=== PATIENT | female | born 1975 | race Caucasian/White ===

== ENCOUNTER 2020-05-23 08:22 | Day surgery (SDC) | payer OTHER ==
[~2020-05-23] VITALS: Ht 152.4 cm; Wt 61.5 kg
[2020-05-23] VITALS (8 sets, daily range): BP systolic 118–151; BP diastolic 60–88
[2020-05-23] MEDS ORDERED: KETOROLAC 30 MG/ML 1ML VIAL IV ONE (09:00)
[2020-05-23] MEDS ORDERED: NAPR-885 PO (09:07)
[2020-05-23] MEDS ORDERED: AMBI5TAB PO (09:07)
[2020-05-23] MEDS ORDERED: TIZA4CAP6 PO (09:07)
[2020-05-23] MEDS ORDERED: METH750T2 PO (09:07)
[2020-05-23] MEDS ORDERED: CLAR10CA3 PO (09:07)
[2020-05-23] MEDS ORDERED: OXYB5TAB10 PO (09:07)
[2020-05-23] MEDS ORDERED: TRAM50TA2 PO (09:07)
[2020-05-23] MEDS ORDERED: GABA-843 PO (09:07)
[2020-05-23 09:11] LABS: BASO % 0.2 % (0.0-1.0); EOS # 0.1 10^3/uL (0.0-0.5); EOS % 0.7 % (0.0-3.0); HEMOGLOBIN 12.5 g/dl (12.0-15.5); LYMPH # 2.1 10^3/uL (1.5-5.0); MEAN CORPUSCULAR HEMOGLOBIN 33.4 pg (27.0-33.0); MEAN CORPUSCULAR HGB CONC 32.9 g/dl (32.0-36.5); MEAN CORPUSCULAR VOLUME 101.6 fl (80.0-96.0); MONO # 0.9 10^3/uL (0.0-0.8); MONO % 7.5 % (0.0-5.0); NEUTROPHILS # 9.2 10^3/uL (1.5-8.5); NEUTROPHILS % 74.3 % (36.0-66.0); PLATELET COUNT, AUTOMATED 260 10^3/uL (150-450); RED BLOOD COUNT 3.74 10^6/uL (4.00-5.40); WHITE BLOOD COUNT 12.3 10^3/uL (4.0-10.0)
[2020-05-23] MEDS ORDERED: ISOVUE-370 76% 100ML VIAL As Ordered ONE (09:49)
--- NOTE | 2020-05-23 10:17 | REP ---
Clinical: Acute right lower quadrant pain. Technique: Axial contrast enhanced images from the lung bases to the pubic symphysis using 100 ml Isovue 370 intravenous contrast material with coronal and sagittal re-formations. Findings: The appendix is fluid-filled and dilated to approximately 13.5 mm with periappendiceal stranding located inferiorly from the cecum into the right lower quadrant (images 104 - 125). Findings are compatible with acute appendicitis. Small amount of free fluid extends into the pelvis. No bowel obstruction or perforation. No drainable collection/abscess. Liver, spleen, pancreas, gallbladder, bilateral adrenal glands and kidneys are normal. Remainder of the enteric system is unremarkable. Pelvis demonstrates normal bladder and age-appropriate uterus/adnexa. No adenopathy. No free air. Atherosclerotic changes to the aorta without aneurysm or dissection. Musculoskeletal structures intact. Impression: Acute appendicitis as described above. No obstruction, perforation, or drainable collection/abscess. Electronically Signed by Escobar Palomo MD 05/23/2020 10:08 A
--- NOTE | 2020-05-23 10:27 | REP ---
Clinical: Lower chest pain Comparison: None . Findings: The mediastinum and cardiac silhouette are stable and within normal limits for portable technique. The lung williamson are clear without acute consolidation, effusion, or pneumothorax. Very minimal linear fibroatelectatic changes at the left base are nonspecific. Skeletal structures are intact. Impression: No focal consolidation or effusion. Electronically Signed by Escobar Palomo MD 05/23/2020 10:18 A
[2020-05-23] MEDS ORDERED: NS 1,000 ML IV SCH ×2 (10:30→12:10)
[2020-05-23] MEDS ORDERED: PIPERACILLIN/TAZOBACTAM SOD 3.375 GM in D5W MINI-BAG PLUS 50 ML IV ONE (10:30)
[2020-05-23] MEDS ORDERED: ACET-897 PO (10:48)
[2020-05-23] MEDS ORDERED: TIZA2CAP PO (10:48)
[2020-05-23] MEDS ORDERED: METH1TAB40 PO (10:48)
[2020-05-23] MEDS ORDERED: OXYB10TA23 PO (10:48)
[2020-05-23] MEDS ORDERED: NICO-242 PO (10:48)
[2020-05-23] MEDS ORDERED: ROCURONIUM BROMIDE 50 MG/5 ML VIAL As Ordered ONE (11:43)
[2020-05-23] MEDS ORDERED: ONDANSETRON 4MG/2ML VIAL As Ordered ONE (11:43)
[2020-05-23] MEDS ORDERED: dexameTHASONE 4 MG/ML 1ML VIAL (J1100 PER 1MG) As Ordered ONE (11:43)
[2020-05-23] MEDS ORDERED: LIDOCAINE 2% 100MG/5ML SDV (FOR ANES.) As Ordered ONE (11:43)
[2020-05-23] MEDS ORDERED: fentaNYL 250 MCG/5 ML INJECTION (J3010) As Ordered ONE (11:43)
[2020-05-23] MEDS ORDERED: propofoL 200 MG/20 ML VIAL As Ordered ONE (11:43)
[2020-05-23] MEDS ORDERED: MIDAZOLAM INJ 2MG/2ML VIAL (J2250 PER 1MG) As Ordered ONE (11:44)
[2020-05-23] MEDS ORDERED: KETOROLAC 30 MG/ML 1ML VIAL IV PRN (12:15)
[2020-05-23] MEDS ORDERED: ACETAMINOPHEN TAB 650MG DOSE (2X325MG) PO PRN (12:15)
[2020-05-23] MEDS ORDERED: MORPHINE 2 MG/ML 1ML VIAL (J2270) IV PRN (12:15)
[2020-05-23] MEDS ORDERED: ONDANSETRON 4MG/2ML VIAL IV PRN ×2 (12:15→15:00)
[2020-05-23] MEDS ORDERED: zolPIDEM TARTRATE 5 MG TAB PO PRN (12:15)
[2020-05-23] MEDS ORDERED: BUPIVACAINE/EPIN 0.25% 30 ML VIAL As Ordered ONE (13:20)
[2020-05-23] MEDS ORDERED: KETOROLAC 60MG 2ML VIAL As Ordered ONE (13:35)
[2020-05-23] MEDS ORDERED: PHENYLephrine HCL 500 MCG/5 ML (100MCG/ML) SYRINGE (J2370) As Ordered ONE (13:55)
[2020-05-23] MEDS ORDERED: ACETAMINOPHEN 1000MG 100ML IV BTL (OFIRMEV) (J0131 PER 10MG) As Ordered ONE (14:05)
[2020-05-23] MEDS ORDERED: HYDROmorphone HCL 2 MG/ML 1ML VIAL (J1170) As Ordered ONE (14:09)
[2020-05-23] MEDS ORDERED: SUGAMMADEX SODIUM 500 MG/5 ML VIAL (BRIDION) As Ordered ONE (14:13)
[2020-05-23] MEDS ORDERED: HYDR-3715 PO (14:41)
[2020-05-23] MEDS ORDERED: AUGM875T28 PO (14:41)
[2020-05-23] MEDS: fentaNYL 100 MCG/2 ML INJECTION (J3010) IV PRN ×8 (14:57→15:41)
[2020-05-23] MEDS ORDERED: LR 1,000 ML IV SCH (15:00)
[2020-05-23] MEDS ORDERED: METOCLOPRAMIDE INJ 10MG/2ML VIAL (J2765 PER 1) IV PRN (15:00)
[2020-05-23] MEDS ORDERED: MEPERIDINE INJ 25 MG/ML VIAL (J2175) IV PRN (15:00)
[2020-05-23] MEDS: PERCOCET 5MG/325MG TAB PO PRN ×2 (15:00→15:41)
[2020-05-23] MEDS: PIPERACILLIN/TAZOBACTAM SOD 3.375 GM in D5W MINI-BAG PLUS 50 ML IV SCH ×2 (18:23→23:56)
[2020-05-23] MEDS: NORCO, ANEXSIA 5/325MG TABLET (HYDROcodone/ACETAMINOPHEN) PO PRN (18:57)
--- NOTE | 2020-05-23 19:21 | HPE ---
DATE OF ADMISSION: 05/23/2020 CHIEF COMPLAINT: Right lower quadrant pain. HISTORY OF PRESENT ILLNESS: The patient is a 44-year-old female who woke up suddenly around 3:00 a.m. this morning with right lower quadrant pain; it has gotten progressively worse. She went to her provider who sent her to the emergency room. In the emergency room (ER), she had elevated white count as well as CT findings suspicious for acute appendicitis. She was brought to the operating room for urgent appendectomy. She says that her pain is still present. No fevers or chills. No nausea or vomiting. No problems with urination or bowel movements. No recent trauma or travel and no changes in medications. PAST MEDICAL HISTORY: Shoulder pain, history of tobacco usage in the past; she recently quit. PAST SURGICAL HISTORY: section (C section), ankle surgery, nose surgery. ALLERGIES: None. HOME MEDICATIONS: Please see med rec. SOCIAL HISTORY: Denies drug, alcohol, tobacco abuse. FAMILY HISTORY: Noncontributory. REVIEW OF SYSTEMS: Pertinent positives and negatives as stated in the history of the present illness. PHYSICAL EXAMINATION: General: Alert and oriented times three. No acute stress. Vital signs: Temperature 97.6, pulse 63, respirations 16, blood pressure 103/63, pulse oximetry 99% room air. HEENT: Pupils equally round and react to light and accommodation. Heart: S1 and S2, regular rate and rhythm. Lungs: Clear to auscultation bilaterally. Abdomen: Soft, tender to palpation right lower quadrant. Localized guarding. No rebound or rigidity. Extremities: No clubbing, cyanosis or edema. LABORATORY DATA: White count 12.3, hemoglobin 12.5, platelets 260, sodium 138, potassium 3.7. IMAGING STUDIES: CT abdomen and pelvis showed acute appendicitis. No obstruction, perforation or drainable collection or abscess. The appendix is fluid filled and dilated to approximately 13.5 mm with periappendiceal fat stranding. ASSESSMENT/PLAN: The patient is a 44-year-old female with acute appendicitis. Recommendation was to proceed with laparoscopic appendectomy. Risks and benefits of the procedure not limited to but including bleeding, infection, hernia formation, damage to surrounding structures, and need for further surgery discussed in detail with the patient. Informed consent was obtained and procedure was planned urgently. Postoperatively, she will be either discharged home depending on when the procedure is completed or kept overnight with plan for discharge in the morning.
[2020-05-23] MEDS ORDERED: GABAPENTIN 300 MG CAP PO SCH (21:00)
[2020-05-23] MEDS: methocarbamoL 500 MG TAB PO SCH (21:15)
[2020-05-23] MEDS: SENOKOT S TAB PO SCH (21:15)
[2020-05-23] MEDS ORDERED: NICOTINE 4 MG PO PRN (23:15)
[2020-05-24] VITALS: BP 109/59
[2020-05-24] MEDS: NORCO, ANEXSIA 5/325MG TABLET (HYDROcodone/ACETAMINOPHEN) PO PRN ×2 (04:37→10:02)
[2020-05-24 05:00] VITALS: BP 105/59
[2020-05-24] MEDS: PIPERACILLIN/TAZOBACTAM SOD 3.375 GM in D5W MINI-BAG PLUS 50 ML IV SCH (05:56)
[2020-05-24 07:03] LABS: HEMATOCRIT 34.2 % (36.0-47.0); HEMOGLOBIN 11.2 g/dl (12.0-15.5); MEAN CORPUSCULAR HEMOGLOBIN 33.5 pg (27.0-33.0); MEAN CORPUSCULAR HGB CONC 32.7 g/dl (32.0-36.5); MEAN CORPUSCULAR VOLUME 102.4 fl (80.0-96.0); PLATELET COUNT, AUTOMATED 247 10^3/uL (150-450); RED BLOOD COUNT 3.34 10^6/uL (4.00-5.40); WHITE BLOOD COUNT 9.2 10^3/uL (4.0-10.0)
[2020-05-24 07:22] LABS: BLOOD UREA NITROGEN 9 MG/DL (7-18); CALCIUM LEVEL 8.8 MG/DL (8.5-10.1); CARBON DIOXIDE LEVEL 28 MEQ/L (21-32); CHLORIDE LEVEL 108 MEQ/L (98-107); CREATININE FOR GFR 0.63 MG/DL (0.55-1.30); GLOMERULAR FILTRATION RATE > 60.0 (>58); GLUCOSE, FASTING 147 MG/DL (70-100); POTASSIUM SERUM 4.2 MEQ/L (3.5-5.1); SODIUM LEVEL 139 MEQ/L (136-145)
[2020-05-24 08:00] VITALS: BP 118/62
[2020-05-24] MEDS ORDERED: LORATADINE 10 MG TAB PO SCH (09:00)
[2020-05-24] MEDS ORDERED: oxyBUTYnin *DITROPAN XL* 5 MG TABCR PO SCH (09:00)
[2020-05-24] MEDS: methocarbamoL 500 MG TAB PO SCH (09:27)
[2020-05-24] MEDS: SENOKOT S TAB PO SCH (09:27)
--- NOTE | 2020-05-25 14:31 | RO ---
DATE OF PROCEDURE: 05/23/2020 PREOPERATIVE DIAGNOSIS: Acute appendicitis. POSTOPERATIVE DIAGNOSIS: Acute appendicitis. PROCEDURE: Laparoscopic appendectomy. SURGEON: Dr. Brad So COUNTER TOP ASSEMBLER: None. ANESTHESIA: General. ESTIMATED BLOOD LOSS: 5. COMPLICATIONS: None. INDICATIONS FOR PROCEDURE: The patient is a 44-year-old female who presents with right lower quadrant abdominal pain and found to have acute appendicitis on CT. Recommendation was to proceed with laparoscopic appendectomy. Risks and benefits of the procedure not limited to, but including bleeding, infection, hernia formation, damage to surrounding structures, need for further surgery were discussed in detail with the patient. Informed consent was obtained and the procedure planned. DESCRIPTION OF PROCEDURE: The patient brought back to operating room two after sufficient sedation and the abdomen was sterilely prepped and draped. Next a time out was done to confirm proper patient and proper procedure. Following that, a 5 mm incision was made in the left lower quadrant, Veress needle inserted and the abdomen was insufflated to 15 mmHg. The Veress needle was then removed. A 5 mm OptiVu port was used to gain access to the abdomen. Once the abdomen was entered, an 8 mm port was placed supraumbilically in the midline and another 5 mm port suprapubically in the midline. Next, the right lower quadrant was examined. The omentum was adhered to the tip the appendix. This was gently taken down with the Enseal. The appendix was then elevated up anteriorly. The mesoappendix was taken down until the base of the appendix was reached using the Enseal. Once the base was reached, it was ligated with two PDS Endoloops. The appendix was then amputated with the Enseal and placed inside of 5 mm EndoCatch bag. The appendix was then brought out through the supraumbilical port site. Once the appendix was out, the fascia was closed with [id number] #0 Vicryl suture. The abdomen was then desufflated. Skin incision closed with #4-0 Vicryl subcuticular sutures. The abdomen was cleaned and dried. Steri-Strips, 4x4 and tape were applied, thus ending the procedure.
--- NOTE | 2020-05-27 08:10 | DSES ---
DATE OF ADMISSION: 05/23/2020 DATE OF DISCHARGE: 05/24/2020 ADMISSION DIAGNOSIS: Appendicitis. DISCHARGE DIAGNOSIS: Appendicitis. HOSPITAL COURSE: The patient is a 44-year-old female. She came into the hospital on 05/23/2020 with acute appendicitis. She was brought to the operating room for urgent laparoscopic appendectomy. Surgery was uneventful. Postoperatively, she was new to the area and did not have anyone to stay with and did not have access to medications from a pharmacy, so she decided to stay overnight. This morning, she is doing well. She feels much better. Pain is controlled. She is urinating well. Ambulating without any difficulty. Tolerating diet. PLAN: Is to discharge home this morning. She has pain pill and antibiotic sent to her pharmacy yesterday. She can shower later this afternoon. No baths for 5 days. No lifting more 20 pounds for 2 weeks. She will followup with me in the office in 2 weeks to make sure everything is okay, and then she can be cleared to go back to work without any restrictions. All of her questions are answered; and if she needs anything else, she will call my office. Dictation
== END 2020-05-24 10:05 | disposition home or self-care (01) ==
LOC: M ED 08:22 → M SDC 10:40 → ENRESERV 12:30 → M PED 17:05 → M SDC 05-24 10:05
PROVIDERS: ATTEND Surgery
DX: K35.890 Other acute appendicitis without perforation or gangrene (principal); Z87.891 Personal history of nicotine dependence
CPT/HCPCS: 36415; 44970; 71045; 74177; 80047; 80048; 81001; 83605; 84702; 85025; 85027; 88304; 96361; 96365; 96366; 96375; 99284; J0131; J1100; J1170; J1885; J2250; J2370; J2405; J2543; J3010; Q9967; U0002

== ENCOUNTER → 2020-05-29 | Outpatient (CLI) | payer OTHER ==
[~2020-05-29] MED LIST: ACET-897 PO; AMBI5TAB PO; AUGM875T28 PO; CLAR10CA3 PO; GABA-843 PO; HYDR-3715 PO; METH1TAB40 PO; METH750T2 PO; NAPR-885 PO; NICO-242 PO; OXYB10TA23 PO; OXYB5TAB10 PO; TIZA2CAP PO; TIZA4CAP6 PO; TRAM50TA2 PO
--- NOTE | 2020-05-30 08:28 | REPPI ---
REASON: Dyspnea. COMPARISON: Portable exam obtained 05/23/2020. FINDINGS: The superior mediastinal structures are midline. The cardiac silhouette is unremarkable in size, shape, and position. The diaphragmatic surfaces of the lungs are regular, and the costophrenic angles are clear. The pulmonary williamson are clear. The imaged osseous structures are intact. IMPRESSION: There is no acute cardiopulmonary disease. No significant change other than technique. Electronically Signed by Eusebio Dennis DO 05/30/2020 05:17 P
== END ==
LOC: M PLALAB 15:10
PROVIDERS: ATTEND Internal Medicine Pulmonary Disease
DX: R06.02 Shortness of breath (principal)

== ENCOUNTER → 2020-07-10 | Outpatient (CLI) | payer OTHER ==
--- NOTE | 2020-08-04 13:16 | METHCHAL ---
Ordering Provider: Dr. Bautista. Quality: Study is excellent technical quality. Procedure: Under protocol, methacholine is administered. With a dose of 0.25 mg or 0.125 CDUs a 22% decline in the FEV1 was noted. PC not calculated. Flow rates did return to baseline post bronchodilator administration. IMPRESSION: Positive methacholine challenge study. MTDD
--- NOTE | 2020-08-07 07:45 | PFTRPT ---
Visit Date: 07/10/2020 Second ID: [id number] Referring Doctor: Cyril Bautista MD Height: 60.00 Inches Weight: 133.00 Lbs BSA: 1.57 Diagnosis: R06.02 QUALITY: Study of excellent technical quality. PROCEDURE: Under protocol, methacholine was administered. At a dose of 0.025 mg or 0.125 CDUs, a 22% decline in the FEV1 was noted. Flow rates did return to baseline post-bronchodilator administration. IMPRESSION: Positive methacholine challenge study. MTDD
== END ==
LOC: M CARPUL 14:00
PROVIDERS: ATTEND Internal Medicine Pulmonary Disease
DX: R06.02 Shortness of breath (principal)

== ENCOUNTER → 2020-12-13 | Outpatient (CLI) | payer OTHER ==
[~2020-12-13] MED LIST changes: +GABA-282 PO; -GABA-843 PO; +METH-1164 PO; +METH-1165 PO; -METH1TAB40 PO; -METH750T2 PO
--- NOTE | 2020-12-13 16:24 | REP ---
INDICATION: KNOTS LT BREAST 2-3 O'CLOCK. History of breast cancer in sister at age 35. COMPARISON: 01/05/2020. TECHNIQUE: MLO and CC views of both breasts performed. Spot-compression views upper-outer quadrant left breast performed at the site of the reported palpable lump, which is marked on the skin. Focused left breast ultrasound performed at the site of the palpable lump. FINDINGS: Mild scattered fibroglandular tissue is present bilaterally. I see no evidence of mass or suspicious clusters of microcalcifications. Tiny calcifications are seen in the right breast which appear to represent benign milk of calcium in microcysts. These are present on the prior study. Focused left breast ultrasound performed in the upper-outer quadrant at the site of the palpable lump. 3 mm cyst is noted. No other cystic or solid nodule is seen. The Volpara volumetric breast density pattern is A. IMPRESSION: BIRADS/ACR category 2, benign. No mass or suspicious clusters of microcalcifications on the mammogram. By ultrasound there is a 3 mm cyst in the upper outer quadrant of left breast in the region of the palpable lump. No other cystic or solid nodule is seen. This patient's Tyrer-Cuzick lifetime breast cancer risk assessment score is 16.4%. This mammogram was interpreted with the aid of an FDA-approved computer-aided detection system. The patient states she had a clinical breast exam in over 1 year ago. The patient letter being requested is M2. RECOMMENDATION: Repeat screening mammography recommended 1 year (for women over 40). <Electronically signed by Brad Johnson > 12/13/20 [id number]
== END ==
LOC: M WHC 07:58
PROVIDERS: ATTEND Family Medicine
DX: N60.02 Solitary cyst of left breast (principal); Z80.3 Family history of malignant neoplasm of breast; R92.1 Mammographic calcification found on diagnostic imaging of breast
CPT/HCPCS: 76642; 77066; G0279

== ENCOUNTER → 2021-05-08 | Outpatient (CLI) | payer OTHER ==
--- NOTE | 2021-05-09 06:35 | REP ---
INDICATION: SWELLING LUMP COMPARISON: None TECHNIQUE: Realtime grayscale and color B-mode ultrasound examination using linear high-frequency transducer. FINDINGS: Directed ultrasound examination to the right axilla overlying palpable mass demonstrates multiple ovoid somewhat hyperechoic structures the largest of which measure 11 x 7 x 9 mm and 21 x 5 x 11 mm. IMPRESSION: Few predominately ovoid hyperechoic structures may represent small lymph nodes and are otherwise nonspecific by ultrasound evaluation.. <Electronically signed by Escobar Palomo > 05/09/21 [id number]
== END ==
LOC: M RAD 13:35
PROVIDERS: ATTEND Surgery
DX: D48.7 Neoplasm of uncertain behavior of other specified sites (principal); R22.9 Localized swelling, mass and lump, unspecified

== ENCOUNTER → 2021-06-19 | Outpatient (REF) | payer OTHER ==
[2021-06-19 13:54] LABS: APPEARANCE, URINE HAZY (CLEAR); BACTERIA, URINE AUTO 2+ (NEGATIVE); BILIRUBIN, URINE AUTO NEGATIVE (NEGATIVE); BLOOD, URINE BLOOD 1+ (NEGATIVE); COLOR, URINE YELLOW (YELLOW); GLUCOSE, URINE (UA) AUTO NEGATIVE (NEGATIVE); KETONE, URINE AUTO NEGATIVE (NEGATIVE); LEUKOCYTE ESTERASE, URINE AUTO 1+ (NEGATIVE); MUCUS, URINE SMALL (NEGATIVE); NITRITE, URINE AUTO POSITIVE (NEGATIVE); PROTEIN, URINE AUTO NEGATIVE (NEGATIVE); RBC, URINE AUTO 2 /HPF (0-3); SPECIFIC GRAVITY URINE AUTO 1.015 (1.002-1.035); SQUAMOUS EPITHELIAL CELL UR AU 1 /HPF (0-6); UROBILINOGEN, URINE AUTO 0.2 mg/dL (0.0-2.0); WBC, URINE AUTO 51 /HPF (0-3)
== END ==
LOC: M SMT 13:19
PROVIDERS: ATTEND Nurse Practitioner Women's Health
DX: R32 Unspecified urinary incontinence (principal)

== ENCOUNTER → 2021-06-19 | Outpatient (CLI) | payer OTHER ==
[2021-06-21 13:12] LABS: ANA (HEP2) Positive (.); ANTI DS-DNA AB Negative (Negative); ANTI-SMOOTH MUSCLE ANTIBODY 10 Units (0-19); CYCLIC CITRULLINATED PEPTIDE 8 units (0-19); RNP ANTIBODY 0.3 AI (0.0-0.9); SMITHS ANTIBODY < 0.2 AI (0.0-0.9); SSA SJOGRENS A <0.2 AI (0.0-0.9); SSB SJOGRENS B <0.2 AI (0.0-0.9)
== END ==
LOC: M PLALAB 11:27
PROVIDERS: ATTEND Internal Medicine Rheumatology
DX: M25.50 Pain in unspecified joint (principal)
CPT/HCPCS: 36415; 51798; 81001; 86038; 86200; 86225; 86235; 86255; 86431; 87088; 87186; G0463

== ENCOUNTER → 2021-06-20 | Outpatient (CLI) | payer OTHER ==
[2021-06-20 14:20] LABS: COLLAGEN EPINEPHRINE 160 SECONDS (74-162)
== END ==
LOC: M PLALAB 11:00
DX: Z01.818 Encounter for other preprocedural examination (principal)

== ENCOUNTER → 2021-08-27 | Outpatient (CLI) | payer OTHER ==
[~2021-08-27] MED LIST changes: +ISOVUE-300 61% 50ML VIAL As Ordered ONE; +LIDOCAINE 1% MDV 20ML VIAL As Ordered ONE; +TRIAMCINOLONE ACETONIDE SUSP 40 MG/ML VIAL (J3301) As Ordered ONE
--- NOTE | 2021-08-27 16:05 | REP ---
INDICATION: RT HIP OA W/ PAIN BURSITIS. COMPARISON: None. TECHNIQUE: The procedure was performed under the direct supervision of Dr. Diamond. The benefits and risks including but not limited to pain infection and bleeding and anaphylaxis were explained to the patient and informed consent was obtained. The right femoral neck was localized using fluoroscopic guidance. The skin was prepped and draped in a sterile fashion. 1% lidocaine was used as a local anesthetic. Using fluoroscopic guidance, and last image hold technology, a 22-gauge spinal needle was inserted and advanced to the femoral neck. 0.5 ml of Isovue-300 was injected to verify placement. Ten ml of a solution containing 9 ml of 1% Xylocaine and 1 mL of Kenalog 40 mg was injected. The needle was then removed. The patient tolerated the procedure well and there were no immediate complications. Less than 6 seconds of fluoro time was utilized for this procedure. FINDINGS: None IMPRESSION: Fluoro guidance for right hip injection. <Electronically signed by Alex Donahue > 08/27/21 [id number] <Electronically signed by Benny Diamond > 08/27/21 [id number]
== END ==
LOC: M RADPRO 13:42
PROVIDERS: ATTEND Student in an Organized Health Care Education/Training Program
DX: M16.11 Unilateral primary osteoarthritis, right hip (principal)
CPT/HCPCS: 20610; 77002; J3301; Q9967